=== PATIENT | male | born 1970 | race Caucasian/White ===

== ENCOUNTER 2019-08-25 10:11 | Outpatient (CLI) | payer BC ==
[2019-08-25] MEDS ORDERED: MULT-717 PO (11:01)
[2019-08-25] MEDS ORDERED: potassium PO (11:01)
[2019-08-25] MEDS ORDERED: nicotine PO (11:01)
[2019-08-25] MEDS ORDERED: MV-M1TAB16 PO (11:01)
[2019-08-25] MEDS ORDERED: [UNRECOGNIZED DRUG - CODE] PO (11:01)
[2019-08-25] MEDS ORDERED: ASCO500T8 PO (11:01)
[2019-08-25] MEDS ORDERED: zinc PO (11:01)
[2019-08-25] MEDS ORDERED: MAGN250T8 PO (11:01)
[2019-08-25] MEDS ORDERED: OMEG-76 PO (11:01)
== END 2019-08-25 23:59 | disposition home or self-care (01) ==
LOC: STAR 10:11
PROVIDERS: ATTEND Surgery
DX: Z02.9 Encounter for administrative examinations, unspecified (principal)

== ENCOUNTER 2019-08-29 07:21 | Day surgery (SDC) | payer BC ==
[~2019-08-29] VITALS: Ht 180.3 cm; Wt 85.7 kg
[~2019-08-29 07:21] MED LIST: ASCO500T8 PO; BUPIVACAINE/PF-EPI 0.5% 1:200K ONE; MAGN250T8 PO; MULT-717 PO; MV-M1TAB16 PO; OMEG-76 PO; [UNRECOGNIZED DRUG - CODE] PO; nicotine PO; potassium PO; zinc PO
[2019-08-29] MEDS ORDERED: LACTATED RINGERS 1,000 ML IV SCH (08:06)
[2019-08-29] MEDS ORDERED: CHLORHEXIDINE 15 ML UDC ONE (08:09)
[2019-08-29] MEDS ORDERED: CHLORHEXIDINE 15 ML UDC MM ONE (08:30)
[2019-08-29] MEDS ORDERED: FENTANYL PF 250 MCG/5ML ONE (08:57)
[2019-08-29] MEDS ORDERED: MIDAZOLAM 1 MG/ML, 2ML ONE (08:57)
[2019-08-29] MEDS ORDERED: BUPIVACAINE/PF-EPI 0.25% 1:200K INFIL ONE (09:50)
[2019-08-29] MEDS ORDERED: LIDOCAINE-MPF 2% ,5ML ONE (09:50)
[2019-08-29] MEDS ORDERED: OXYcodone 5 MG/5 ML ORAL.SOL UDC PO PRN (11:00)
[2019-08-29] MEDS ORDERED: FENTANYL PF 100 MCG/2ML IV PRN (11:00)
[2019-08-29] MEDS ORDERED: PROMETHAZINE 25 MG SUPP PR PRN (11:00)
[2019-08-29] MEDS ORDERED: ACETAMINOPHEN 325 MG TABLET PO PRN (11:00)
[2019-08-29] MEDS ORDERED: LORazepam 2 MG/ML, 1ML IVPush PRN (11:00)
[2019-08-29] MEDS ORDERED: PROMETHAZINE 25 MG/ML, 1ML IVPush PRN (11:00)
[2019-08-29] MEDS ORDERED: ONDANSETRON 2MG/ML, 2ML IVPush PRN (11:00)
[2019-08-29] MEDS ORDERED: HYDROmorphone 1 MG/ML, 1ML INJ IVPush PRN (11:00)
[2019-08-29] MEDS ORDERED: NEOSTIGMINE 1 MG/ML, 10ML ONE (11:01)
[2019-08-29] MEDS ORDERED: GLYCOPYRROLATE 0.2MG/1ML, 5ML ONE (11:01)
[2019-08-29] MEDS ORDERED: PROPOFOL 10 MG/ML, 20ML ONE (11:01)
[2019-08-29] MEDS ORDERED: ONDANSETRON 2MG/ML, 2ML ONE (11:01)
[2019-08-29] MEDS ORDERED: CEFAZOLIN 1,000 MG ONE (11:01)
[2019-08-29] MEDS ORDERED: ROCURONIUM 10MG/ML,5ML ONE (11:01)
[2019-08-29] MEDS ORDERED: SUCCINYLCHOLINE 20 MG/ML, 10ML ONE (11:01)
[2019-08-29] MEDS ORDERED: DEXAMETHASONE 4 MG/ML, 1ML ONE (11:01)
[2019-08-29] MEDS ORDERED: KETOROLAC 30 MG/1 ML IVPush STA (11:10)
[2019-08-29] MEDS ORDERED: KETOROLAC 30 MG/1 ML ONE (11:12)
[2019-08-29] MEDS ORDERED: ACETAMINOPHEN 650 MG/20.3 ML UDC ONE (11:15)
[2019-08-29] MEDS ORDERED: OXYcodone 5 MG/5 ML ORAL.SOL UDC ONE (11:15)
[2019-08-29] MEDS ORDERED: FENTANYL PF 100 MCG/2ML ONE (11:27)
== END 2019-08-29 13:45 | disposition home or self-care (01) ==
LOC: OUT 07:21
PROVIDERS: ATTEND Surgery
DX: K40.91 Unilateral inguinal hernia, without obstruction or gangrene, recurrent (principal); Z11.59 Encounter for screening for other viral diseases; Z88.8 Allergy status to other drugs, medicaments and biological substances; Z98.890 Other specified postprocedural states; Z79.82 Long term (current) use of aspirin; Z82.49 Family history of ischemic heart disease and other diseases of the circulatory system; Z79.899 Other long term (current) drug therapy; Z87.891 Personal history of nicotine dependence
CPT/HCPCS: 49520; C1727; C1781; J0330; J0690; J1100; J1885; J2250; J2405; J2704; J2710; J3010; J7120; U0001